=== PATIENT | male | born 1955 | race Caucasian/White ===

== ENCOUNTER → 2017-07-22 | Outpatient (CLI) | payer BC ==
[2017-07-22 11:27] LABS: CH 30.1; CHCM 34.1; HCT 43.7 % (39.0-53.0); HDW 3.07; HGB 14.8 gm/dL (13.0-17.5); MCHC 33.8 g/dL (31.0-37.0); MCV 88.7 fL (80.0-100.0); Mean Platelet Volume 6.8; RBC 4.93 m/uL (4.30-5.90); RDW 13.2 % (11.5-15.5)
[2017-07-22 11:57] LABS: Partial Thromboplastin Time 24.5 sec (22.0-30.0)
[2017-07-22 11:59] LABS: INR 1.2 (<1.2); Prothrombin Time 11.7 sec (9.0-12.0)
[2017-07-22 12:02] LABS: Calcium 9.2 mg/dL (8.4-10.2); Potassium 4.7 mmol/L (3.5-5.1); Total Bilirubin 0.7 mg/dL (0.2-1.3); Total Protein 6.8 g/dL (6.3-8.2)
[2017-07-22 15:12] LABS: Appearance,Urine Clear (Clear); Bilirubin,Urine Negative (Negative); Glucose,Urine (UA) Negative (Negative); Ketones,Urine Negative (Negative); Leukocyte Esterase,Urine Negative (Negative); Nitrite,Urine Negative (Negative); PH, Urine 5.5 (5.0-8.0); Protein,Urine Negative (Negative); Specific Gravity,Urine 1.013 (1.001-1.035); UA Billing (MACRO vs. MICRO) CHEM; Urobilinogen,Urine <2.0 mg/dL (<2.0)
== END | disposition home or self-care (01) ==
LOC: LABPAT 10:59
PROVIDERS: ATTEND Orthopaedic Surgery
DX: Z01.812 Encounter for preprocedural laboratory examination (principal); Z01.810 Encounter for preprocedural cardiovascular examination
CPT/HCPCS: 36415; 80053; 81003; 85027; 85610; 85730; 87070

== ENCOUNTER → 2017-10-07 | Outpatient (CLI) | payer BC | END | disposition home or self-care (01) | LOC: LABWHC1 11:48 | PROVIDERS: ATTEND Radiology Radiation Oncology | DX: C61 Malignant neoplasm of prostate (principal) | CPT/HCPCS: 36415; 84153 ==

== ENCOUNTER → 2018-02-13 | Outpatient (CLI) | payer BC | LOC: LABWHC1 13:30 | PROVIDERS: ATTEND Radiology Radiation Oncology | DX: C61 Malignant neoplasm of prostate (principal) | CPT/HCPCS: 36415; 84153 ==

== ENCOUNTER → 2018-02-26 | Outpatient (CLI) | payer BC ==
--- NOTE | 2018-02-27 19:34 | MR ---
EXAMINATION TYPE: MR shoulder RT wo con DATE OF EXAM: 02/26/2018 COMPARISON: NONE HISTORY: Right shoulder pain TECHNIQUE: Multiplanar, multisequence imaging of the right shoulder is performed without contrast. FINDINGS: Rotator Cuff: There is a bursal surface partial thickness tear of the supraspinatus measuring approxi mately 2.0 x 1.7 cm. Additionally there is an articular surface partial-thickness tear of the inserti onal fibers of the supraspinatus at the footplate of the greater tuberosity measuring 0.2 x 0.5 cm. T his is superimposed upon severe tendinopathy of the supraspinatus with abnormal intrinsic signal of t he myotendinous junction and distal fibers. There is a near complete thickness tear of the infraspinatus with few bursal surface fibers remaining measuring at least 1.2 x 1.5 cm. There is associated retraction without atrophy. Findings are also s uperimposed upon moderate tendinopathy. The teres minor and subscapularis muscles and tendons are of normal signal and volume. Acromioclavicular Joint: There is moderate acromioclavicular arthropathy demonstrated as hypertrophy, subchondral cysts and marginal osteophytes. There is minimal impression on the supraspinatus without abnormal underlying supraspinatus signal. Bursal surface tear of the Glenohumeral Joint: There are small marginal osteophytes of the humeral head and few osseous cyst rel ating to mild arthropathy. Labrum: There is a superior labral anterior to posterior tear that is nondisplaced. There is also lab ral degeneration of the inferior labrum. Biceps Tendon: The long head of biceps is in normal location within bicipital groove. Bone marrow signal: No focal abnormal marrow signal is appreciated. Other: Amount of fluid is seen within the subcoracoid bursa as well as the subacromial/subdeltoid bur sa. IMPRESSION: 1. Near full-thickness tear of the infraspinatus measuring 1.2 x 1.5 cm. Associated moderate tendinop athy and retraction without muscular atrophy. 2. Partial-thickness bursal surface tear of the supraspinatus measuring 2.0 x 1.7 cm and insertional fiber partial-thickness tear measuring 0.2 x 0.5 cm superimposed upon severe tendinopathy. 3. Small nondisplaced superior labral anterior to posterior tear. Inferior labral degeneration. 4. Moderate acromio clavicular arthropathy and mild glenohumeral arthropathy. 5. Small amount of fluid within the subcoracoid bursa as well as the subacromial/subdeltoid bursa hector t may clinically correlate with bursitis.
== END | disposition home or self-care (01) ==
LOC: RADMRIMAIN 10:58
PROVIDERS: ATTEND Orthopaedic Surgery
DX: M75.121 Complete rotator cuff tear or rupture of right shoulder, not specified as traumatic (principal); M19.011 Primary osteoarthritis, right shoulder

== ENCOUNTER → 2018-03-03 | Outpatient (CLI) | payer BC ==
[2018-03-03 10:12] LABS: Basophils # (A) 0.1 k/uL (0-0.2); Basophils % (A) 1 %; Eosinophils # (A) 0.2 k/uL (0-0.7); Eosinophils % (A) 4 %; HCT 43.5 % (39.0-53.0); HGB 14.9 gm/dL (13.0-17.5); Lymphocytes # (A) 1.4 k/uL (1.0-4.8); Lymphocytes % (A) 22 %; MCH 30.7 pg (25.0-35.0); MCHC 34.2 g/dL (31.0-37.0); MCV 89.7 fL (80.0-100.0); Mean Platelet Volume 7.2; Monocytes # (A) 0.5 k/uL (0-1.0); Monocytes % (A) 9 %; Neutrophils # (A) 3.8 k/uL (1.3-7.7); Neutrophils % (A) 62 %; Platelet Count 226 k/uL (150-450); RBC 4.85 m/uL (4.30-5.90); WBC 6.1 k/uL (3.8-10.6)
[2018-03-03 10:17] LABS: INR 1.2 (<1.2); Partial Thromboplastin Time 22.4 sec (22.0-30.0); Prothrombin Time 11.2 sec (9.0-12.0)
[2018-03-03 10:31] LABS: Calcium 9.7 mg/dL (8.4-10.2)
== END | disposition home or self-care (01) ==
LOC: LABWHC1 09:15
PROVIDERS: ATTEND Physician Assistant
DX: Z01.812 Encounter for preprocedural laboratory examination (principal)
CPT/HCPCS: 36415; 80048; 85025; 85610; 85730; 93005

== ENCOUNTER → 2018-04-04 | Outpatient (CLI) | payer BC ==
--- NOTE | 2018-04-05 18:45 | CT ---
EXAMINATION TYPE: CT brain w con DATE OF EXAM: 04/04/2018 COMPARISON: NONE HISTORY: Left eye droop x7 months CT DLP: 1129 mGycm Automated Exposure Control for Dose Reduction was Utilized. TECHNIQUE: CT scan of the head is performed with IV contrast.,CT scan of the head is performed withou t and with with IV Contrast, patient injected with 80 mL of Isovue 300. FINDINGS: The ventricles and sulci are within normal limits in size. Postcontrast images show no susp icious enhancing intraparenchymal mass. The globes are intact. Lenses appear symmetric as do the extr aocular muscles. There is no engorgement of the superior ophthalmic veins. No convincing evidence of intracranial aneurysm is seen although this could be better assessed with MRA. Cavernous sinuses appe ar symmetric. There is minimal atherosclerosis of the intracranial vasculature. Mild mucoperiosteal t hickening is seen of the left inferior maxillary sinus. Otherwise the visualized paranasal sinuses an d mastoid air cells appear well aerated. Cerumen is noted within the external auditory canals bilater ally. There is minimal leftward nasal septal deviation with a small leftward nasal septal spur. IMPRESSION: No evidence of intracranial enhancing mass, orbital abnormality, intraconal or extraconal mass, or gross evidence of intracranial aneurysm. If there is further clinical concern MRI could be performed.
== END | disposition home or self-care (01) ==
LOC: RADCTMAIN 16:51
PROVIDERS: ATTEND Family Medicine
DX: H02.432 Paralytic ptosis of left eyelid (principal); Z13.9 Encounter for screening, unspecified
CPT/HCPCS: 82565; 84520; 70460; 36415; Q9967

== ENCOUNTER → 2018-07-28 | Outpatient (CLI) | payer BC | END | disposition home or self-care (01) | LOC: LABWHC1 09:47 | PROVIDERS: ATTEND Radiology Radiation Oncology | DX: C61 Malignant neoplasm of prostate (principal) | CPT/HCPCS: 36415; 84153 ==

== ENCOUNTER → 2019-01-22 | Outpatient (CLI) | payer BC | END | disposition home or self-care (01) | LOC: LABWHC1 07:47 | PROVIDERS: ATTEND Urology | DX: C61 Malignant neoplasm of prostate (principal) | CPT/HCPCS: 36415; 84153 ==

== ENCOUNTER → 2019-04-30 | Outpatient (CLI) | payer BC | END | disposition home or self-care (01) | LOC: LABWHC1 09:49 | PROVIDERS: ATTEND Radiology Radiation Oncology | DX: C61 Malignant neoplasm of prostate (principal); Z87.891 Personal history of nicotine dependence; Z92.3 Personal history of irradiation | CPT/HCPCS: 36415; 84153 ==

== ENCOUNTER → 2019-05-29 | Outpatient (CLI) | payer BC ==
--- NOTE | 2019-05-29 09:46 | XR ---
EXAMINATION TYPE: XR toes RT, 3 views coned down great toe DATE OF EXAM: 05/29/2019 COMPARISON: NONE HISTORY: 63 year-old male right toe pain TECHNIQUE: 3 views FINDINGS: Mild degenerative change first MTP joint with joint space narrowing and mild subchondral sclerosis. T here is some bony bunion along the medial aspect of the first metatarsal head with bony irregularity and hyperostosis. No acute fracture, subluxation, or dislocation. IMPRESSION: 1. Mild first MTP joint OA. Additional bony bunion. 2. No acute osseous abnormality seen.
== END | disposition home or self-care (01) ==
LOC: RADXRMAIN 09:12
PROVIDERS: ATTEND Family Medicine
DX: M19.071 Primary osteoarthritis, right ankle and foot (principal)

== ENCOUNTER → 2019-11-06 | Outpatient (CLI) | payer BC | END | disposition home or self-care (01) | LOC: LABWHC1 07:14 | PROVIDERS: ATTEND Radiology Radiation Oncology | DX: C61 Malignant neoplasm of prostate (principal); Z92.3 Personal history of irradiation; Z87.891 Personal history of nicotine dependence | CPT/HCPCS: 36415; 84153 ==

== ENCOUNTER → 2020-11-09 | Outpatient (CLI) | payer MEDICARE | END | disposition home or self-care (01) | LOC: LABWHC1 08:38 | PROVIDERS: ATTEND Radiology Radiation Oncology | DX: C61 Malignant neoplasm of prostate (principal); Z92.3 Personal history of irradiation; Z87.891 Personal history of nicotine dependence | CPT/HCPCS: 36415; 84153 ==

== ENCOUNTER → 2021-11-08 | Outpatient (CLI) | payer MEDICARE | END | disposition home or self-care (01) | LOC: LABWHC1 09:30 | PROVIDERS: ATTEND Radiology Radiation Oncology | DX: Z08 Encounter for follow-up examination after completed treatment for malignant neoplasm (principal); Z85.46 Personal history of malignant neoplasm of prostate; Z92.3 Personal history of irradiation; Z87.891 Personal history of nicotine dependence; C61 Malignant neoplasm of prostate | CPT/HCPCS: 36415; 84153 ==

== ENCOUNTER → 2021-12-05 | Outpatient (CLI) | payer MEDICARE ==
[2021-12-05 14:55] LABS: Basophils # (A) 0.11 X 10*3/uL (0.00-0.10); Basophils % (A) 1.4 %; Eosinophils # (A) 0.34 X 10*3/uL (0.04-0.35); Eosinophils % (A) 4.5 %; HCT 45.7 % (39.6-50.0); Immature Grans, Automated 1.3 %; Lymphocytes # (A) 1.83 X 10*3/uL (0.90-5.00); MCH 29.5 pg (27.0-32.0); MCHC 32.8 g/dL (32.0-37.0); MCV 89.8 fL (80.0-97.0); Mean Platelet Volume 10.2 fL (9.5-12.2); Monocytes # (A) 0.68 X 10*3/uL (0.20-1.00); Monocytes % (A) 8.9 %; NRBC Per 100 WBC 0 /100 WBCS (0.0-0.0); Neutrophils # (A) 4.58 X 10*3/uL (1.80-7.70); Neutrophils % (A) 59.9 %; Platelet Count 217 X 10*3/uL (140-440); RBC 5.09 X 10*6/uL (4.40-5.60); RDW 13.3 % (11.5-14.5); WBC 7.64 X 10*3/uL (4.50-10.00)
[2021-12-05 15:24] LABS: ALT 30 U/L (10-49); AST 31 U/L (14-35); African American GFR (CKD) 70.5 (60.0-200.0); Albumin 4.7 g/dL (3.8-4.9); Albumin/Globulin Ratio 1.83 (1.60-3.17); Alkaline Phosphatase 40 U/L (41-126); BUN/Creat Ratio 14.88 Ratio (12.00-20.00); Blood Urea Nitrogen 18.3 mg/dL (9.0-27.0); Calcium 9.4 mg/dL (8.7-10.3); Carbon Dioxide 21.7 mmol/L (20.0-27.5); Chloride 105 mmol/L (96-109); Globulin 2.5 g/dL (1.6-3.3); Glucose 105 mg/dL (70-110); Non-African American GFR(CKD) 60.8 (60.0-200.0); Potassium 4.8 mmol/L (3.5-5.5); Sodium 141 mmol/L (135-145); Total Protein 7.2 g/dL (6.2-8.2)
== END | disposition home or self-care (01) ==
LOC: LABWHC1 09:47
PROVIDERS: ATTEND Internal Medicine Clinical Cardiac Electrophysiology
DX: I10 Essential (primary) hypertension (principal); I25.10 Atherosclerotic heart disease of native coronary artery without angina pectoris; R06.02 Shortness of breath
CPT/HCPCS: 36415; 80053; 80061; 85025

== ENCOUNTER → 2022-06-13 | Outpatient (CLI) | payer MEDICARE ==
[2022-06-13 16:52] LABS: African American GFR (CKD) 72.6 (60.0-200.0); Anion Gap 10.1 mmol/L (10.00-18.00); Blood Urea Nitrogen 15.8 mg/dL (9.0-27.0); Carbon Dioxide 24.5 mmol/L (20.0-27.5); Non-African American GFR(CKD) 62.6 (60.0-200.0); Potassium 4.7 mmol/L (3.5-5.5)
[2022-06-13 17:23] LABS: HCT 44.7 % (39.6-50.0); HGB 14.8 g/dL (13.0-17.0); MCH 29.7 pg (27.0-32.0); MCHC 33.1 g/dL (32.0-37.0); MCV 89.6 fL (80.0-97.0); Mean Platelet Volume 10.4 fL (9.5-12.2); NRBC Per 100 WBC 0 /100 WBCS (0.0-0.0); Platelet Count 208 X 10*3/uL (140-440); RBC 4.99 X 10*6/uL (4.40-5.60); RDW 13.2 % (11.5-14.5)
== END | disposition home or self-care (01) ==
LOC: LABPAT 10:35
PROVIDERS: ATTEND Internal Medicine Interventional Cardiology
DX: Z01.812 Encounter for preprocedural laboratory examination (principal); I25.10 Atherosclerotic heart disease of native coronary artery without angina pectoris
CPT/HCPCS: 80051; 82565; 84520; 85027

== ENCOUNTER → 2022-06-20 | Day surgery (SDC) | payer MEDICARE ==
[2022-06-18 15:45] VITALS: BMI 30.9
[~2022-06-20] MED LIST: ALPRAZolam 0.25 MG TAB PO PRN; ALPRAZolam 0.5 MG TAB PO PRN; ASPIRIN 325 MG TAB PO STA; ATORVASTATIN 80 MG TAB PO STA; HEPARIN SODIUM 1,000 UN/ML (10ML VL) IVP ONE; HEPARIN SODIUM 1,000 UN/ML (10ML VL) ONE; HEPARIN SODIUM,PORCINE 10,000 UNIT in SODIUM CHLORIDE 0.9% 1,000 ML IRRIGATION PRN; HEPARIN SODIUM,PORCINE 2,500 UNIT in SODIUM CHLORIDE 0.9% 250 ML IRRIGATION PRN; IOPAMIDOL-370 125ML BTL INJ ONE; ISOSORBIDE MONONITRATE ER 30 MG TAB.ER.24H PO STA; LIDOCAINE 1% INJ 10MG/ML (30 ML VIAL-PF) SQ ONE; MIDAZOLAM 2 MG/2 ML VIAL IVP ONE; NITROGLYCERIN SL TABS 0.4 MG TAB SUBLINGUAL PRN; RX INFO: IV CONTRAST WAS GIVEN 1 EACH MISC MISCELLANE PRN; SODIUM CHLORIDE 0.9% 1,000 ML IV ONE; SODIUM CHLORIDE 0.9% 1,000 ML IV SCH; SODIUM CHLORIDE 0.9% 1,000 ML in EMPTY BAG 1 BAG IV SCH; VERAPAMIL 2.5 MG/ML 2 ML AMP ONE; VERAPAMIL SYRINGE (5 MG/10 ML) INTRAARTER ONE; carvediloL 3.125 MG TAB PO STA; fentaNYL (PF) 50 MCG/ML 2 ML AMP ONE
[2022-06-20 10:59] VITALS: RESP 16; TEMP 9.9
[2022-06-20 11:02] LABS: Glucose,Whole Blood 122 mg/dL (70-110)
--- NOTE | 2022-06-20 12:42 | P.PCN ---
Date of Procedure: 06/20/22 Operative Findings: CARDIAC CATHETERIZATION PERFORMING PHYSICIAN: Mega Arango MD, RPVI PROCEDURE PERFORMED: 1. Selective right and left coronary angiogram 2. Left heart catheterization INDICATION: This is a 66-year-old gentleman was known CAD and prior stenting of the LAD. The patient was seen recently in the office by Dr. Nolasco where he was experiencing symptoms of shortness of breath with exertion concerning for severe underlying coronary artery disease. In the light of that heart catheterization was advised COMPLICATION: None APPROACH: Right radial artery LEVEL OF SEDATION: Moderate with a sedation length of 13 minutes PROCEDURE DESCRIPTION: After obtaining an informed consent, the patient was brought to cardiac label coder. Local anesthesia was performed using lidocaine subcutaneously. The right radial artery was cannulated using Seldinger technique, the guidewire passed easily, following that we advanced a 5-[place] sheath dilator assembly, the wire and dilator were removed and sheath was flushed. Following that, 2 mg of verapamil along with 5000 unit heparin were given. Selective right and left coronary angiogram using a 6-[place] JR4 and JL 3.5 catheters. Following that we did left heart catheterization using 6-[place] pigtail catheter. The procedure was completed there was no complication. SELECTIVE CORONARY ANGIOGRAM: The right coronary artery: Large caliber vessel and a dominant vessel. The mid RCA has mild disease only appeared to be in the range of 20-30%. Left main: Angiographically normal. Bifurcates into LCx and LAD The left circumflex: Large caliber vessel. Nondominant vessel. The LCx system is angiographically normal. Gives rise into an OM1 and OM to both appeared to be angiographically normal The left anterior descending artery: Large caliber vessel. The LAD is angiographically normal. Gives rises into first and second diagonal branches both appeared to be angiographically normal. The LAD stent appeared to be patent HEMODYNAMICS: LVEDP was 10 mmHg was no significant dependent across aortic CONCLUSION: 1. Patent stent in the proximal LAD. 2. Mild disease involving the mid right coronary artery appears to be in the range of 20-30% 3. Normal left sided filling pressure POSTPROCEDURE MANAGEMENT: Aggressive cholesterol control and follow-up with the patient
[2022-06-20 15:50] VITALS: BP 117/72; PULSE 62
== END ==
LOC: CATHCVL 10:34
PROVIDERS: ATTEND Internal Medicine Interventional Cardiology
DX: I25.110 Atherosclerotic heart disease of native coronary artery with unstable angina pectoris (principal); I10 Essential (primary) hypertension; E78.00 Pure hypercholesterolemia, unspecified; I25.2 Old myocardial infarction; I25.5 Ischemic cardiomyopathy; Z95.5 Presence of coronary angioplasty implant and graft; E78.5 Hyperlipidemia, unspecified; Z20.822 Contact with and (suspected) exposure to COVID-19; Z79.82 Long term (current) use of aspirin; Z79.899 Other long term (current) drug therapy; Z88.0 Allergy status to penicillin
CPT/HCPCS: 93458; 87635; C1769; C1894; J2250; J2001; J1644; Q9967

== ENCOUNTER → 2023-03-04 | Outpatient (CLI) | payer MEDICARE ==
--- NOTE | 2023-03-04 09:14 | XR ---
EXAMINATION TYPE: XR chest special 4+ views DATE OF EXAM: 03/04/2023 8:58 AM COMPARISON: Chest radiographs from TECHNIQUE: XR chest special 4+ views frontal, bilateral oblique, and lateral. CLINICAL INDICATION:Male, 67 years old with history of R03.5 chronic cough; FINDINGS: Lungs/Pleura: There is no evidence of pleural effusion, focal consolidation, or pneumothorax. Pulmonary vascularity: Unremarkable. Heart/mediastinum: Cardiomediastinal silhouette is unremarkable. Musculoskeletal: No acute osseous pathology. IMPRESSION: No acute cardiopulmonary disease/process.
== END | disposition home or self-care (01) ==
LOC: RADXRMAIN 08:37
PROVIDERS: ATTEND Otolaryngology
DX: R05.3 Chronic cough (principal)
CPT/HCPCS: 71048

== ENCOUNTER → 2024-06-16 | Outpatient (CLI) | payer MEDICARE ==
--- NOTE | 2024-06-19 21:15 | US ---
EXAMINATION TYPE: US groin RT DATE OF EXAM: 06/16/2024 COMPARISON: NONE CLINICAL INDICATION: Male, 68 years old with history of R10.2 Pelvic and perineal pain; hx of prostat e can; Right groin pain Right groin: scanned at patient's area of concern - appears wnl at this time IMPRESSION: 1. No discrete abnormality at the area of concern right groin region [facility], , 06/19/2024 9:13 PM
== END | disposition home or self-care (01) ==
LOC: RADUSWWP 08:46
PROVIDERS: ATTEND Family Medicine

== ENCOUNTER 2024-10-23 20:57 | Observation (INO) | payer MEDICARE ==
[2024-10-23] MEDS: HYDROmorphone 1 MG/ML 1 ML SYRINGE IVP STA ×2 (21:43→23:54)
[2024-10-23] MEDS: SODIUM CHLORIDE 0.9% 1,000 ML IV STA (21:43)
[2024-10-23 21:57] LABS: Basophils # (A) 0.2 k/uL (0-0.2); Basophils % (A) 1 %; Eosinophils # (A) 0.2 k/uL (0-0.7); Eosinophils % (A) 1 %; HCT 49.2 % (39.0-53.0); Lymphocytes # (A) 1.3 k/uL (1.0-4.8); Lymphocytes % (A) 7 %; MCH 29.5 pg (25.0-35.0); MCHC 34.5 g/dL (31.0-37.0); MCV 85.5 fL (80.0-100.0); Mean Platelet Volume 6.9; Monocytes # (A) 1.1 k/uL (0-1.0); Monocytes % (A) 6 %; Neutrophils # (A) 16.6 k/uL (1.3-7.7); Neutrophils % (A) 85 %; Platelet Count 251 k/uL (150-450); RBC 5.76 m/uL (4.30-5.90); RDW 13.4 % (11.5-15.5); WBC 19.5 k/uL (3.8-10.6)
[2024-10-23 22:07] LABS: Appearance,Urine Turbid (Clear); Bacteria,Urine Occasional /hpf; Bilirubin,Urine Negative (Negative); Blood,Urine Large (Negative); Color,Urine Light Red; Glucose,Urine (UA) Negative (Negative); Hyaline Casts,Urine 14 /lpf (0-2); Ketones,Urine Trace (Negative); Leukocyte Esterase,Urine Negative (Negative); Mucus,Urine Many /hpf; Nitrite,Urine Negative (Negative); Protein,Urine 1+ (Negative); RBC,Urine >182 /hpf (0-5); Squamous Epithelial Cell,Urine 2 /hpf (0-4); Urobilinogen,Urine <2.0 mg/dL (<2.0); WBC,Urine 18 /hpf (0-5)
[2024-10-23 22:21] LABS: ALT 40 U/L (4-49); AST 32 U/L (17-59); African American GFR (CKD) 45 (>60 ml/min/1.73 sqM); Alkaline Phosphatase 55 U/L (38-126); Anion Gap 17 mmol/L; Blood Urea Nitrogen 26 mg/dL (9-20); Calcium 10.6 mg/dL (8.4-10.2); Carbon Dioxide 17 mmol/L (22-30); Chloride 105 mmol/L (98-107); Glucose 131 mg/dL (74-99); Lipase 170 U/L (23-300); Non-African American GFR(CKD) 39 (>60 ml/min/1.73 sqM); Potassium 4.6 mmol/L (3.5-5.1); Sodium 139 mmol/L (137-145); Total Protein 7.5 g/dL (6.3-8.2)
[2024-10-24] MEDS: cefTRIAXone IN SWFI 1,000 MG/10 ML SYRINGE IVP STA (00:43)
--- NOTE | 2024-10-24 01:00 | CT ---
EXAM: CT Abdomen and Pelvis With Intravenous Contrast CLINICAL HISTORY: ITS.REASON CT Reason: abdominal pain TECHNIQUE: Axial computed tomography images of the abdomen and pelvis with intravenous contrast. CTDI is 28.3 mGy and DLP is 1391 mGy-cm. This CT exam was performed using one or more of the following dose reduction techniques: automated exposure control, adjustment of the mA and/or kV according to patient size, and/or use of iterative reconstruction technique. COMPARISON: No previous studies. FINDINGS: Lung bases: Minimal scarring and subsegmental atelectasis noted near the lung bases. Heart: Heart is normal in size. ABDOMEN: Liver: Fatty liver. Gallbladder and bile ducts: Unremarkable. No calcified stones. No ductal dilation. Pancreas: See below. Spleen: Spleen enhances uniformly. Adrenals: The adrenal glands, the head, body, tail of the pancreas are unremarkable. Kidneys and ureters: Moderate to severe right hydronephrosis. At the junction of the mid to distal right ureter, best seen on series 2 0 image 69, there is a 0.4 cm obstructing calculus of the right ureter. A 0.7 cm nonobstructing left renal calculus is noted without hydronephrosis. Nonspecific stranding about the right perinephric space. Moderate right hydroureter. Stomach and bowel: Moderate quantity of ingested material in the stomach. Moderate quantity of stool throughout the colon. No obstruction. No mucosal thickening. PELVIS: Appendix: Appendix is seen on coronal image 55 and is unremarkable. Bladder: Bladder is underdistended. Reproductive: Enlarged heterogeneous prostate gland. ABDOMEN and PELVIS: Intraperitoneal space: Unremarkable. No free air. No significant fluid collection. Bones/joints: No acute fracture. No dislocation. Soft tissues: Unremarkable. Vasculature: Unremarkable. No abdominal aortic aneurysm. Lymph nodes: Unremarkable. No enlarged lymph nodes. Other findings: ASCVD. IMPRESSION: 1. A 0.4 cm obstructing calculus is noted at the junction of the mid to distal right ureter causing right hydronephrosis and right hydroureter. 2. Nonobstructing left renal calculus. 3. Fatty liver. 4. No gallstones. 5. Appendix is unremarkable. 6. No bowel obstruction. 7. Diverticulosis without diverticulitis.
[2024-10-24] MEDS ORDERED: NALOXONE 0.4 MG/ML 1 ML VIAL IV PRN (01:59)
[2024-10-24] MEDS ORDERED: ACETAMINOPHEN TAB 325 MG TAB PO PRN (01:59)
[2024-10-24] MEDS ORDERED: ONDANSETRON 4 MG/2 ML VIAL IVP PRN (01:59)
--- NOTE | 2024-10-24 01:59 | ED ---
Abdominal Pain HPI - General Chief Complaint: Abdominal Pain Stated Complaint: Side and back pain Source: patient Mode of arrival: ambulatory Limitations: no limitations - History of Present Illness Initial Comments: 68-year-old male with past medical history of prostate cancer, diabetes who presents emergency department with right flank pain. States that he has had pain for 3 to 4 hours. Pain radiates from the right flank into his right groin. Patient denies any trauma to the area. No heavy lifting. Denies any changes in his urination to include dysuria, hematuria or difficulty voiding. Denies diarrhea, constipation, black or bloody stools. No history of similar pain in the past. Denies history of kidney stones. He did not take anything for pain before coming in. No numbness, tingling or weakness in his lower extremities. Denies any additional symptoms to include fever, nausea, vomiting. - Related Data Home Medications Medication Instructions Recorded Confirmed Aspirin [Adult Low Dose Aspirin EC] 162 mg PO DAILY 07/24/17 06/20/22 Cholecalciferol [Vitamin D3 (25 5,000 unit PO DAILY 07/24/17 06/20/22 Mcg = 1000 Iu)] Gabapentin [Neurontin] 300 mg PO HS 07/24/17 06/20/22 Irbesartan [Avapro] 150 mg PO HS 07/24/17 06/20/22 Isosorbide Mononitrate [Isosorbide 30 mg PO DAILY 06/18/22 06/20/22 Mononitrate ER] Spironolactone 25 mg PO DAILY 06/18/22 06/20/22 Tamsulosin [Flomax] 0.4 mg PO DAILY 06/18/22 06/20/22 carvediloL [Coreg] 3.125 mg PO BID 06/18/22 06/20/22 Atorvastatin [Lipitor] 80 mg PO HS 06/20/22 06/20/22 Etanercept [Enbrel] 50 mg SQ WEEKLY 06/20/22 06/20/22 oxyCODONE-APAP 5-325MG [Percocet 1 tab PO Q4HR PRN 06/20/22 06/20/22 5-325 mg] Previous Rx's Medication Instructions Recorded Nitroglycerin Sl Tabs [Nitrostat] 0.4 mg SUBLINGUAL Q5M PRN #25 tab 09/21/17 Allergies Allergy/AdvReac Type Severity Reaction Status Date / Time amoxicillin Allergy Unknown Nausea & Verified 10/23/24 21:01 Vomiting & Diarrhea ibuprofen [From Motrin] AdvReac Unknown STATES Verified 10/23/24 21:01 DOES NOT TAKE DUE TO KIDNEYS. Review of Systems ROS Statement: Those systems with pertinent positive or pertinent negative responses have been documented in the HPI. ROS Other: All systems not noted in ROS Statement are negative. Past Medical History Past Medical History: Cancer, Chest Pain / Angina, Diabetes Mellitus, Myocardial Infarction (ME) Additional Past Medical History / Comment(s): prostate cancer, arthritis Last Myocardial Infarction Date:: 2016 History of Any Multi-Drug Resistant Organisms: None Reported Past Surgical History: Heart Catheterization With Stent, Tonsillectomy Additional Past Surgical History / Comment(s): knee surgery x3, bicep surgery, Past Anesthesia/Blood Transfusion Reactions: No Reported Reaction Date of Last Stent Placement:: 2006 Past Psychological History: No Psychological Hx Reported Smoking Status: Current every day smoker Past Alcohol Use History: None Reported Past Drug Use History: None Reported - Past Family History Father Family Medical History: Cancer Mother Family Medical History: Cancer General Exam Limitations: no limitations Course Vital Signs 10/23/24 10/24/24 20:58 02:01 Temperature 97.4 F L Pulse Rate 78 54 L Respiratory 20 18 Rate Blood Pressure 153/76 184/74 O2 Sat by Pulse 95 99 Oximetry Medical Decision Making - Medical Decision Making Was pt. sent in by a medical professional or institution ([facility], [employer], urgent care, hospital, or usp...) When possible be specific @ -[No] Did you speak to anyone other than the patient for history (EMS, parent, family, police, friend...)? What history was obtained from this source @ -[No] Did you review nursing and triage notes (agree or disagree)? Why? @ -[I reviewed and agree with nursing and triage notes] Were old charts reviewed (outside hosp., previous admission, EMS record, old EKG, old radiological studies, urgent care reports/EKG's, usp records)? Report findings @ -[No old charts were reviewed] Differential Diagnosis (chest pain, altered mental status, abdominal pain women, abdominal pain men, vaginal bleeding, weakness, fever, dyspnea, syncope, headache, dizziness, GI bleed, back pain, seizure, CVA, palpatations, mental health, musculoskeletal)? @ -[not applicable] EKG interpreted by me (3pts min.). @ -Yes and demonstrates sinus bradycardia with rate of 53. Parable 201. QRS 100. QTc of 394. No acute ST segment elevations or depressions X-rays interpreted by me (1pt min.). @ -[None done] CT interpreted by me (1pt min.). @ -[None done] U/S interpreted by me (1pt. min.). @ -[None done] What testing was considered but not performed or refused? (CT, X-rays, U/S, lab s)? Why? @ -[None] What meds were considered but not given or refused? Why? @ -[None] Did you discuss the management of the patient with other professionals (professionals i.e. , PA, [employer], lab, RT, psych nurse, licensed master social worker, communication equipment mechanic, teacher, disability insurance hearing officer, porter sample case)? Give summary @ -[No] Was smoking cessation discussed for >3mins.? @ -[No] Was critical care preformed (if so, how long)? @ -[No] Were there social determinants of health that impacted care today? How? (Homelessness, low income, unemployed, alcoholism, drug addiction, transportation, low edu. Level, literacy, decrease access to med. care, long term, rehab)? @ -[No] Was there de-escalation of care discussed even if they declined (Discuss DNR or withdrawal of care, Hospice)? DNR status @ -[No] What co-morbidities impacted this encounter? (DM, HTN, Smoking, COPD, CAD, Cancer, CVA, ARF, Chemo, Hep., AIDS, mental health diagnosis, sleep apnea, morbid obesity)? @ -[None] Was patient admitted / discharged? Hospital course, mention meds given and route, prescriptions, significant lab abnormalities, going to OR and other pertinent info. @ -[hospital course] Undiagnosed new problem with uncertain prognosis? @ -[No] Drug Therapy requiring intensive monitoring for toxicity (Heparin, Nitro, Insulin, Cardizem)? @ -[No] Were any procedures done? @ -[No] Diagnosis/symptom? @ -[default] Acute, or Chronic, or Acute on Chronic? @ -[default] Uncomplicated (without systemic symptoms) or Complicated (systemic symptoms)? @ -[default] Side effects of treatment? @ -[No] Exacerbation, Progression, or Severe Exacerbation? @ -[No] Poses a threat to life or bodily function? How? (Chest pain, USA, ME, pneumonia, PE, COPD, DKA, ARF, appy, cholecystitis, CVA, Diverticulitis, Homicidal, Suicidal, threat to staff... and all critical care pts) @ -[No] - Lab Data Result diagrams: 10/23/24 21:32 10/23/24 21:32 Lab Results 10/23/24 10/23/24 10/23/24 Range/Units 21:32 21:32 21:32 WBC 19.5 H (3.8-10.6) k/uL RBC 5.76 (4.30-5.90) m/uL Hgb 17.0 (13.0-17.5) gm/dL Hct 49.2 (39.0-53.0) % MCV 85.5 (80.0-100.0) fL MCH 29.5 (25.0-35.0) pg MCHC 34.5 (31.0-37.0) g/dL RDW 13.4 (11.5-15.5) % Plt Count 251 (150-450) k/uL MPV 6.9 Neutrophils % 85 % Lymphocytes % 7 % Monocytes % 6 % Eosinophils % 1 % Basophils % 1 % Neutrophils # 16.6 H (1.3-7.7) k/uL Lymphocytes # 1.3 (1.0-4.8) k/uL Monocytes # 1.1 H (0-1.0) k/uL Eosinophils # 0.2 (0-0.7) k/uL Basophils # 0.2 (0-0.2) k/uL Sodium 139 (137-145) mmol/L Potassium 4.6 (3.5-5.1) mmol/L Chloride 105 (98-107) mmol/L Carbon Dioxide 17 L (22-30) mmol/L Anion Gap 17 mmol/L BUN 26 H (9-20) mg/dL Creatinine 1.77 H (0.66-1.25) mg/dL Est GFR (CKD-EPI)AfAm 45 (>60 ml/min/1.73 sqM) Est GFR (CKD-EPI)NonAf 39 (>60 ml/min/1.73 sqM) Glucose 131 H (74-99) mg/dL Plasma Lactic Acid Bennie (0.7-2.0) mmol/L Calcium 10.6 H (8.4-10.2) mg/dL Total Bilirubin 1.0 (0.2-1.3) mg/dL AST 32 (17-59) U/L ALT 40 (4-49) U/L Alkaline Phosphatase 55 (38-126) U/L Total Protein 7.5 (6.3-8.2) g/dL Albumin 5.0 (3.5-5.0) g/dL Lipase 170 (23-300) U/L Urine Color Light Red Urine Appearance Turbid (Clear) Urine pH 5.0 (5.0-8.0) Ur Specific [place] 1.030 (1.001-1.035) Urine Protein 1+ H (Negative) Urine Glucose (UA) Negative (Negative) Urine Ketones Trace H (Negative) Urine Blood Large H (Negative) Urine Nitrite Negative (Negative) Urine Bilirubin Negative (Negative) Urine Urobilinogen <2.0 (<2.0) mg/dL Ur Leukocyte Esterase Negative (Negative) Urine RBC >182 H (0-5) /hpf Urine WBC 18 H (0-5) /hpf Urine WBC Clumps Many H (None) /hpf Ur Squamous Epith Cells 2 (0-4) /hpf Urine Bacteria Occasional H (None) /hpf Hyaline Casts 14 H (0-2) /lpf Urine Mucus Many H (None) /hpf 10/23/24 Range/Units 21:32 WBC (3.8-10.6) k/uL RBC (4.30-5.90) m/uL Hgb (13.0-17.5) gm/dL Hct (39.0-53.0) % MCV (80.0-100.0) fL MCH (25.0-35.0) pg MCHC (31.0-37.0) g/dL RDW (11.5-15.5) % Plt Count (150-450) k/uL MPV Neutrophils % % Lymphocytes % % Monocytes % % Eosinophils % % Basophils % % Neutrophils # (1.3-7.7) k/uL Lymphocytes # (1.0-4.8) k/uL Monocytes # (0-1.0) k/uL Eosinophils # (0-0.7) k/uL Basophils # (0-0.2) k/uL Sodium (137-145) mmol/L Potassium (3.5-5.1) mmol/L Chloride (98-107) mmol/L Carbon Dioxide (22-30) mmol/L Anion Gap mmol/L BUN (9-20) mg/dL Creatinine (0.66-1.25) mg/dL Est GFR (CKD-EPI)AfAm (>60 ml/min/1.73 sqM) Est GFR (CKD-EPI)NonAf (>60 ml/min/1.73 sqM) Glucose (74-99) mg/dL Plasma Lactic Acid Bennie 1.3 (0.7-2.0) mmol/L Calcium (8.4-10.2) mg/dL Total Bilirubin (0.2-1.3) mg/dL AST (17-59) U/L ALT (4-49) U/L Alkaline Phosphatase (38-126) U/L Total Protein (6.3-8.2) g/dL Albumin (3.5-5.0) g/dL Lipase (23-300) U/L Urine Color Urine Appearance (Clear) Urine pH (5.0-8.0) Ur Specific [place] (1.001-1.035) Urine Protein (Negative) Urine Glucose (UA) (Negative) Urine Ketones (Negative) Urine Blood (Negative) Urine Nitrite (Negative) Urine Bilirubin (Negative) Urine Urobilinogen (<2.0) mg/dL Ur Leukocyte Esterase (Negative) Urine RBC (0-5) /hpf Urine WBC (0-5) /hpf Urine WBC Clumps (None) /hpf Ur Squamous Epith Cells (0-4) /hpf Urine Bacteria (None) /hpf Hyaline Casts (0-2) /lpf Urine Mucus (None) /hpf Disposition Clinical Impression: UTI (urinary tract infection), Ureteral stone with hydronephrosis, Leukocytosis, Flank pain, DUSTIN (acute kidney injury) Disposition: ADMITTED IP TO THIS [facility] Condition: Stable Is patient prescribed a controlled substance at d/c from ED?: No Time of Disposition: 01:59 Decision to Admit Reason: Admit from EC Decision Date: 10/24/24 Decision Time: 01:59
[2024-10-24] MEDS: KETOROLAC 15 MG/ML 1 ML VIAL IVP SCH (02:33)
[2024-10-24] MEDS: HYDROmorphone 1 MG/ML 1 ML SYRINGE IVP PRN (02:33)
[2024-10-24] MEDS: SODIUM CHLORIDE 0.9% 1,000 ML IV SCH (02:33)
--- NOTE | 2024-10-24 10:59 | P.GSCN ---
History of Present Illness Consult date: 10/24/24 Reason for Consult: Right ureteral calculus Requesting physician: Rosy Perez History of present illness: The patient is a 68-year-old white male with a history of prostate cancer, treated in 2017 with radiation therapy. His PSA levels are very low, as desired. He denies any prior history of urolithiasis. However, yesterday midday he experienced acute onset of right flank pain radiating to the right testicle. CT scan shows evidence of moderate to severe right hydronephrosis due to a 4 to 5 mm calculus just distal to the iliac vessels. An additional 7 mm nonobstructing left renal calculus is seen. Review of Systems - Constitutional Denies chills, Denies fever - Gastrointestinal Denies nausea, Denies vomiting - Genitourinary Reports flank pain, Reports hematuria, Reports kidney stones, Denies dysuria Past Medical History Past Medical History: Cancer, Chest Pain / Angina, Diabetes Mellitus, Myocardial Infarction ([place]) Additional Past Medical History / Comment(s): prostate cancer, arthritis Last Myocardial Infarction Date:: 2016 History of Any Multi-Drug Resistant Organisms: None Reported Past Surgical History: Heart Catheterization With Stent, Tonsillectomy Additional Past Surgical History / Comment(s): knee surgery x3, bicep surgery, Past Anesthesia/Blood Transfusion Reactions: No Reported Reaction Date of Last Stent Placement:: 2006 Past Psychological History: No Psychological Hx Reported Smoking Status: Current every day smoker Past Alcohol Use History: None Reported Past Drug Use History: None Reported - Past Family History Father Family Medical History: Cancer Mother Family Medical History: Cancer Medications and Allergies Home Medications Medication Instructions Recorded Confirmed Type Aspirin [Adult Low Dose Aspirin EC] 162 mg PO DAILY 07/24/17 06/20/22 History Cholecalciferol [Vitamin D3 (25 5,000 unit PO DAILY 07/24/17 06/20/22 History Mcg = 1000 Iu)] Gabapentin [Neurontin] 300 mg PO HS 07/24/17 06/20/22 History Irbesartan [Avapro] 150 mg PO HS 07/24/17 06/20/22 History Nitroglycerin Sl Tabs [Nitrostat] 0.4 mg SUBLINGUAL Q5M PRN #25 tab 09/21/17 06/18/22 Rx Isosorbide Mononitrate [Isosorbide 30 mg PO DAILY 06/18/22 06/20/22 History Mononitrate ER] Spironolactone 25 mg PO DAILY 06/18/22 06/20/22 History Tamsulosin [Flomax] 0.4 mg PO DAILY 06/18/22 06/20/22 History carvediloL [Coreg] 3.125 mg PO BID 06/18/22 06/20/22 History Atorvastatin [Lipitor] 80 mg PO HS 06/20/22 06/20/22 History Etanercept [Enbrel] 50 mg SQ WEEKLY 06/20/22 06/20/22 History oxyCODONE-APAP 5-325MG [Percocet 1 tab PO Q4HR PRN 06/20/22 06/20/22 History 5-325 mg] Allergies Allergy/AdvReac Type Severity Reaction Status Date / Time amoxicillin Allergy Unknown Nausea & Verified 10/23/24 21:01 Vomiting & Diarrhea ibuprofen [From Motrin] AdvReac Unknown STATES Verified 10/23/24 21:01 DOES NOT TAKE DUE TO KIDNEYS. Surgical - Exam Vital Signs Temp Pulse Resp BP Pulse Ox 97.4 F L 78 20 153/76 95 10/23/24 20:58 10/23/24 20:58 10/23/24 20:58 10/23/24 20:58 10/23/24 20:58 - General well developed, well nourished, moderate pain - Respiratory normal respiratory effort - Abdomen Soft, non-distended, no mass. Mild right CVA tenderness. - Psychiatric oriented to time, oriented to person, oriented to place, speech is normal, memory intact Results - Labs 10/23/24 21:32 10/23/24 21:32 Abnormal Lab Results - Last 24 Hours (Table) 10/23/24 10/23/24 10/23/24 Range/Units 21:32 21:32 21:32 WBC 19.5 H (3.8-10.6) k/uL Neutrophils # 16.6 H (1.3-7.7) k/uL Monocytes # 1.1 H (0-1.0) k/uL Carbon Dioxide 17 L (22-30) mmol/L BUN 26 H (9-20) mg/dL Creatinine 1.77 H (0.66-1.25) mg/dL Glucose 131 H (74-99) mg/dL Calcium 10.6 H (8.4-10.2) mg/dL Urine Protein 1+ H (Negative) Urine Ketones Trace H (Negative) Urine Blood Large H (Negative) Urine RBC >182 H (0-5) /hpf Urine WBC 18 H (0-5) /hpf Urine WBC Clumps Many H (None) /hpf Urine Bacteria Occasional H (None) /hpf Hyaline Casts 14 H (0-2) /lpf Urine Mucus Many H (None) /hpf Diabetes panel 10/23/24 Range/Units 21:32 Sodium 139 (137-145) mmol/L Potassium 4.6 (3.5-5.1) mmol/L Chloride 105 (98-107) mmol/L Carbon Dioxide 17 L (22-30) mmol/L BUN 26 H (9-20) mg/dL Creatinine 1.77 H (0.66-1.25) mg/dL Glucose 131 H (74-99) mg/dL Calcium 10.6 H (8.4-10.2) mg/dL AST 32 (17-59) U/L ALT 40 (4-49) U/L Alkaline Phosphatase 55 (38-126) U/L Total Protein 7.5 (6.3-8.2) g/dL Albumin 5.0 (3.5-5.0) g/dL Calcium panel 10/23/24 Range/Units 21:32 Calcium 10.6 H (8.4-10.2) mg/dL Albumin 5.0 (3.5-5.0) g/dL Pituitary panel 10/23/24 Range/Units 21:32 Sodium 139 (137-145) mmol/L Potassium 4.6 (3.5-5.1) mmol/L Chloride 105 (98-107) mmol/L Carbon Dioxide 17 L (22-30) mmol/L BUN 26 H (9-20) mg/dL Creatinine 1.77 H (0.66-1.25) mg/dL Glucose 131 H (74-99) mg/dL Calcium 10.6 H (8.4-10.2) mg/dL Adrenal panel 10/23/24 Range/Units 21:32 Sodium 139 (137-145) mmol/L Potassium 4.6 (3.5-5.1) mmol/L Chloride 105 (98-107) mmol/L Carbon Dioxide 17 L (22-30) mmol/L BUN 26 H (9-20) mg/dL Creatinine 1.77 H (0.66-1.25) mg/dL Glucose 131 H (74-99) mg/dL Calcium 10.6 H (8.4-10.2) mg/dL Total Bilirubin 1.0 (0.2-1.3) mg/dL AST 32 (17-59) U/L ALT 40 (4-49) U/L Alkaline Phosphatase 55 (38-126) U/L Total Protein 7.5 (6.3-8.2) g/dL Albumin 5.0 (3.5-5.0) g/dL - Imaging CT scan - abdomen: report reviewed, image reviewed Assessment and Plan (1) Calculus of kidney Current Visit: Yes Status: Acute Code(s): N20.0 - CALCULUS OF KIDNEY SNOMED Code(s): 22262566 (2) Calculus of ureter Current Visit: Yes Status: Acute Code(s): N20.1 - CALCULUS OF URETER SNOMED Code(s): 86015160 (3) Hydronephrosis with renal and ureteral calculous obstruction Current Visit: Yes Status: Acute Code(s): N13.2 - HYDRONEPHROSIS WITH RENAL AND URETERAL CALCULOUS OBSTRUCTION SNOMED Code(s): 651253865 Plan: I had a lengthy discussion with the patient regarding his right ureteral calculus and left renal calculus. I explained that the right ureteral calculus, based on size and location, it is fairly likely to pass. However, his pain has been intractable and he thus requests intervention. We discussed performing right ureteroscopy with laser lithotripsy to remove the right ureteral calculus, but he wishes to have both calculi removed. In view of this, he will undergo r ight ureteral stent insertion today, with the expectation that this will relieve his ureteral obstruction and allow him to be discharged home. Arrangements would then be made for him to undergo elective removal of both calculi. All of this was discussed with him in detail, and he was made aware of potential risks which include anesthesia, bleeding, infection, and ureteral injury. Time with Patient: Greater than 30
[2024-10-24] MEDS: LIDOCAINE 2% URO-JET JELLY 5 ML KIT URETHRAL ONE ×2 (12:48→13:15)
[2024-10-24] MEDS ORDERED: MIDAZOLAM 2 MG/2 ML VIAL ONE (13:00)
[2024-10-24] MEDS ORDERED: PROPOFOL 10 MG/ML 20 ML VIAL IV ONE (13:00)
[2024-10-24] MEDS ORDERED: fentaNYL (PF) 50 MCG/ML 2 ML AMP ONE (13:00)
[2024-10-24] MEDS: SODIUM CHLORIDE 0.9% 1,000 ML IV ONE (13:02)
--- NOTE | 2024-10-24 13:34 | P.OP ---
Date of Procedure: 10/24/24 Preoperative Diagnosis: Right hydronephrosis secondary to right ureteral calculus Postoperative Diagnosis: Same Procedure(s) Performed: Cystoscopy, right ureteral stent insertion Anesthesia: MAC Surgeon: Elian Davis Estimated Blood Loss (ml): 0 IV fluids (ml): 400 Pathology: none sent Condition: stable Disposition: PACU Indications for Procedure: The patient is a 68-year-old white male with a history of prostate cancer, treated in 2017 with radiation therapy. His PSA levels are very low, as desired. He denies any prior history of urolithiasis. However, yesterday midday he experienced acute onset of right flank pain radiating to the right testicle. CT scan shows evidence of moderate to severe right hydronephrosis due to a 4 to 5 mm calculus just distal to the iliac vessels. An additional 7 mm nonobstructing left renal calculus is seen. He now comes for right ureteral stent insertion. Operative Findings: Retained contrast within the right renal pelvis and ureter down to the level of the iliac vessels. Ureteral stent successfully placed. Description of Procedure: The patient was taken to the operating room and placed in the dorsolithotomy position, with legs supported in Lencho stirrups. The external genitalia was prepped and draped sterilely. The 30 lens was used to introduce the 22-[place] Stortz cystoscopic sheath through the urethra and into the bladder under direct vision. The prostatic urethra was visually occluded with a by lobar configuration. Mucosal vessels within the prostatic urethra were somewhat friable. The bladder was examined in its entirety. Both ureteral orifices were of normal anatomic location and configuration. No tumors or foreign bodies were seen. Fluoroscopy revealed retained contrast within the right renal pelvis and a dilated right ureter, down to the level of the iliac vessels. A 0.035 inch Glidewire was passed through the cystoscope. The right ureteral orifice was cannulated, and the Glidewire was slowly advanced up to the renal pelvis without any resistance. A 26 cm, 6-Venezuelan double-J ureteral stent was placed over the wire. Proper stent positioning was verified fluoroscopically and endoscopically. A "hydronephrotic rodriguez" was noted upon stent placement. The bladder was emptied and the cystoscope removed. The patient tolerated the procedure well and was taken to the recovery room in stable condition.
--- NOTE | 2024-10-24 13:47 | FL ---
Fluoroscopic guidance operating room. HISTORY: Ureteral stent placement. COMPARISON: None TECHNIQUE: 32.7 seconds of fluoroscopy in 2 spot films were obtained. FINDINGS: Spot films demonstrate placement of the right ureteral stent. The distal aspect of the stent is not i ncluded in the study. The proximal aspect of the stent appears to be situated within the right renal collecting system which is mildly hydronephrotic. IMPRESSION: Right ureteral stent placement with fluoroscopic guidance. [facility], , 10/24/2024 1:45 PM
--- NOTE | 2024-10-24 14:14 | P.HPIM ---
History of Present Illness H&P Date: 10/24/24 History of present illness: 68-year-old male patient with past medical history significant for prostate cancer, diabetes mellitus who presented to ER with a complaint of right flank pain. Patient reported that he started to have pain for 3 to 4 hours, was radiating from right flank into his right groin. Patient denied any fever, chills, dysuria urgency or frequency. Vital stable, afebrile, heart rate in the 50s, respiratory rate 16, blood pressure 108/63, saturating 97% on room air. WBCs 19.5, hemoglobin 17.0, platelet 251. BMP remarkable for creatinine 1.77, BUN 26. UA positive for large RBCs, 18 WBCs, occasional bacteria. CT abdomen pelvis showed 0.4 cm obstructing calculus in the right distal ureter with right hydronephrosis and right hydroureter, nonobstructing left renal calculus, fatty liver, diverticulosis. Assessment and plan: Right ureteral stone: Leukocytosis Right hydroureteronephrosis: DUSTIN: Pain control Antibiotic Rocephin Urology consulted IV fluids Monitor renal function Urine culture, blood culture. DVT prophylaxis SCD Monitor vital signs and labs Labs and medication were reviewed. Continue same treatment. Further recommendations as per clinical course of the patient PHYSICAL EXAMINATION: GENERAL: The patient is A&O x3, NAD HEENT: EOMI, Sclerae anicteric, Moist Mucous membranes Neck: Supple, Non tender, No JVD PULMONARY: Equal breath souds B/L, No wheezing, No crackles. CARDIOVASCULAR: S1, S2 present. No murmurs, rubs, or gallops. ABDOMEN: Soft, nontender, nondistended, normoactive bowel sounds. No guarding or rebound tenderness. MUSCULOSKELETAL: No edema, No cyanosis. No clubbing. Normal ROM. Intact peripheral pulses. NEUROLOGICAL: CN 2-12 grossly intact. No FND REVIEW OF SYSTEMS: CONSTITUTIONAL: No fever, no malaise, no fatigue. HEENT: No recent visual problems or hearing problems. Denied any sore throat. CARDIOVASCULAR: No chest pain, orthopnea, PND, no palpitations, no syncope. PULMONARY: No shortness of breath, no cough, no hemoptysis. GASTROINTESTINAL: No diarrhea, no nausea, no vomiting, no abdominal pain. NEUROLOGICAL: No headaches, no weakness, no numbness. HEMATOLOGICAL: Denies any bleeding or petechiae. GENITOURINARY: Denies any burning micturition, frequency, or urgency. MUSCULOSKELETAL/RHEUMATOLOGICAL: Denies any joint pain, swelling, or any muscle pain. ENDOCRINE: Denies any polyuria or polydipsia. The rest of the 14-point review of systems is negative. Dictation was produced using [employer] dictation software. please excuse any grammatical, word or spelling errors. Past Medical History Past Medical History: Cancer, Chest Pain / Angina, Diabetes Mellitus, Myocardial Infarction ([place]) Additional Past Medical History / Comment(s): prostate cancer, arthritis Last Myocardial Infarction Date:: 2016 History of Any Multi-Drug Resistant Organisms: None Reported Past Surgical History: Heart Catheterization With Stent, Tonsillectomy Additional Past Surgical History / Comment(s): knee surgery x3, bicep surgery, Past Anesthesia/Blood Transfusion Reactions: No Reported Reaction Date of Last Stent Placement:: 2006 Past Psychological History: No Psychological Hx Reported Smoking Status: Current every day smoker Past Alcohol Use History: None Reported Past Drug Use History: None Reported - Past Family History Father Family Medical History: Cancer Mother Family Medical History: Cancer Medications and Allergies Home Medications Medication Instructions Recorded Confirmed Type Aspirin [Adult Low Dose Aspirin EC] 162 mg PO DAILY 07/24/17 06/20/22 History Cholecalciferol [Vitamin D3 (25 5,000 unit PO DAILY 07/24/17 06/20/22 History Mcg = 1000 Iu)] Gabapentin [Neurontin] 300 mg PO HS 07/24/17 06/20/22 History Irbesartan [Avapro] 150 mg PO HS 07/24/17 06/20/22 History Nitroglycerin Sl Tabs [Nitrostat] 0.4 mg SUBLINGUAL Q5M PRN #25 tab 09/21/17 06/18/22 Rx Isosorbide Mononitrate [Isosorbide 30 mg PO DAILY 06/18/22 06/20/22 History Mononitrate ER] Spironolactone 25 mg PO DAILY 06/18/22 06/20/22 History Tamsulosin [Flomax] 0.4 mg PO DAILY 06/18/22 06/20/22 History carvediloL [Coreg] 3.125 mg PO BID 06/18/22 06/20/22 History Atorvastatin [Lipitor] 80 mg PO HS 06/20/22 06/20/22 History Etanercept [Enbrel] 50 mg SQ WEEKLY 06/20/22 06/20/22 History oxyCODONE-APAP 5-325MG [Percocet 1 tab PO Q4HR PRN 06/20/22 06/20/22 History 5-325 mg] Sulfamethox-Tmp 800-160Mg [Bactrim 1 tab PO Q12HR #10 tab 10/24/24 Rx DS 800-160 mg] Allergies Allergy/AdvReac Type Severity Reaction Status Date / Time amoxicillin Allergy Unknown Nausea & Verified 10/23/24 21:01 Vomiting & Diarrhea ibuprofen [From Motrin] AdvReac Unknown STATES Verified 10/23/24 21:01 DOES NOT TAKE DUE TO KIDNEYS. Physical Exam Vitals: Vital Signs Temp Pulse Pulse Resp BP BP Pulse Ox 10/24/24 14:04 49 L 16 108/63 97 10/24/24 13:49 52 L 16 110/59 98 10/24/24 13:34 97.4 F L 59 L 16 108/56 95 10/24/24 07:00 97.7 F 62 16 128/70 97 10/24/24 03:00 97.4 F L 83 18 124/79 95 10/24/24 02:01 54 L 18 184/74 99 10/23/24 20:58 97.4 F L 78 20 153/76 95 Intake and Output 10/23/24 10/24/24 10/24/24 22:59 06:59 14:59 Intake Total 400 Output Total 0 Balance 400 Intake: IV 400 Output: Estimated Blood Loss 0 Other: # Voids 1 # Bowel Movements 1 Weight 102.058 kg 102.058 kg 102.058 kg Results CBC & Chem 7: 10/23/24 21:32 10/23/24 21:32 Labs: Abnormal Lab Results - Last 24 Hours (Table) 10/23/24 10/23/24 10/23/24 Range/Units 21:32 21:32 21:32 WBC 19.5 H (3.8-10.6) k/uL Neutrophils # 16.6 H (1.3-7.7) k/uL Monocytes # 1.1 H (0-1.0) k/uL Carbon Dioxide 17 L (22-30) mmol/L BUN 26 H (9-20) mg/dL Creatinine 1.77 H (0.66-1.25) mg/dL Glucose 131 H (74-99) mg/dL Calcium 10.6 H (8.4-10.2) mg/dL Urine Protein 1+ H (Negative) Urine Ketones Trace H (Negative) Urine Blood Large H (Negative) Urine RBC >182 H (0-5) /hpf Urine WBC 18 H (0-5) /hpf Urine WBC Clumps Many H (None) /hpf Urine Bacteria Occasional H (None) /hpf Hyaline Casts 14 H (0-2) /lpf Urine Mucus Many H (None) /hpf Thrombosis Risk Factor Assmnt - Choose All That Apply Each Risk Factor Represents 2 Points: Age 61-74 years Thrombosis Risk Factor Assessment Total Risk Factor Score: 2 Thrombosis Risk Factor Assessment Level: Low Risk
[2024-10-24] MEDS ORDERED: NITROGLYCERIN SL TABS 0.4 MG TAB SUBLINGUAL PRN (18:45)
[2024-10-24] MEDS: ATORVASTATIN 80 MG TAB PO SCH (20:16)
[2024-10-24] MEDS: FAMOTIDINE 20 MG TAB PO SCH (20:16)
[2024-10-24] MEDS: TAMSULOSIN 0.4 MG CAP.ER.24H PO SCH (20:16)
[2024-10-24] MEDS: carvediloL 3.125 MG TAB PO SCH (20:16)
[2024-10-24] MEDS: LOSARTAN 50 MG TAB PO SCH (20:16)
[2024-10-24] MEDS: GABAPENTIN 300 MG CAP PO SCH (20:16)
[2024-10-24] MEDS: MORPHINE SULFATE ER 15 MG TABLET PO SCH (20:17)
[2024-10-25 07:25] VITALS: BP 112/72; PULSE 51; RESP 15; TEMP 98
[2024-10-25] MEDS: CLOPIDOGREL 75 MG TAB PO SCH (08:25)
[2024-10-25] MEDS: SPIRONOLACTONE 25 MG TAB PO SCH (08:25)
[2024-10-25] MEDS: PYRIDOXINE 50 MG TAB PO SCH (08:25)
[2024-10-25] MEDS: ASPIRIN 81 MG PO SCH (08:25)
[2024-10-25] MEDS: CHOLECALCIFEROL 25 MCG (1000 IU) TABLET PO SCH (08:25)
[2024-10-25] MEDS: DAPAGLIFLOZIN PROPANEDIOL 5 MG TABLET PO SCH (08:25)
[2024-10-25 09:39] LABS: Basophils # (A) 0.08 X 10*3/uL (0.00-0.10); Basophils % (A) 1.1 %; Eosinophils # (A) 0.31 X 10*3/uL (0.04-0.35); Eosinophils % (A) 4.3 %; HCT 38.7 % (39.6-50.0); HGB 12.8 g/dL (13.0-17.0); Lymphocytes # (A) 1.31 X 10*3/uL (0.90-5.00); Lymphocytes % (A) 18.3 %; MCH 28.9 pg (27.0-32.0); MCHC 33.1 g/dL (32.0-37.0); MCV 87.4 FL (80.0-97.0); Monocytes % (A) 12.6 %; NRBC Per 100 WBC 0 X 10*3/uL (0.00-0.01); Neutrophils # (A) 4.51 X 10*3/uL (1.80-7.70); Neutrophils % (A) 63.1 %; Platelet Count 182 X 10*3/uL (140-440); RBC 4.43 X 10*6/uL (4.40-5.60); RDW 13.6 % (11.5-14.5); WBC 7.15 X 10*3/uL (4.50-10.00)
[2024-10-25 09:51] LABS: BUN/Creat Ratio 14.43 Ratio (12.00-20.00); Blood Urea Nitrogen 20.2 mg/dL (9.0-27.0); Calcium 8.1 mg/dL (8.7-10.3); Carbon Dioxide 18.1 mmol/L (21.6-31.8); Chloride 116 mmol/L (96-109); Glucose 97 mg/dL (70-110); Potassium 4.2 mmol/L (3.5-5.5); Sodium 143 mmol/L (135-145)
--- NOTE | 2024-10-25 12:47 | P.PN ---
Subjective Progress Note Date: 10/25/24 Principal diagnosis: Right hydronephrosis secondary to right ureteral calculus Mr. Francois was admitted with right renal colic and was found to have high-grade right ureteral obstruction due to a 4 to 5 mm calculus at the level of the iliac vessels. He also has a nonobstructing left renal calculus. He underwent cystoscopy with right ureteral stent insertion on October 24, 2024 and feels markedly better today. Objective - Vital Signs Vital signs: Vital Signs Temp 98.0 F 10/25/24 07:00 Pulse 51 L 10/25/24 07:00 Resp 15 10/25/24 07:00 BP 112/72 10/25/24 07:00 Pulse Ox 94 L 10/25/24 07:00 FiO2 Intake & Output 10/24/24 10/25/24 10/25/24 18:59 06:59 18:59 Intake Total 500 Output Total 0 Balance 500 Weight 102.058 kg Intake: IV 500 Output: Estimated Blood Loss 0 Other: # Voids 1 2 # Bowel Movements 1 - Constitutional General appearance: Present: average body habitus, cooperative, no acute distress - Psychiatric Psychiatric: Present: A&O x's 3 - Labs CBC & Chem 7: 10/25/24 05:39 10/25/24 05:39 Labs: Abnormal Lab Results - Last 24 Hours (Table) 10/25/24 10/25/24 Range/Units 05:39 05:39 Hgb 12.8 L (13.0-17.0) g/dL Hct 38.7 L (39.6-50.0) % Chloride 116 H (96-109) mmol/L Carbon Dioxide 18.1 L (21.6-31.8) mmol/L Est GFR (CKD-EPI) 55 L (>=60) Calcium 8.1 L (8.7-10.3) mg/dL Assessment and Plan (1) Calculus of kidney Current Visit: Yes Status: Acute Code(s): N20.0 - CALCULUS OF KIDNEY SNOM ED Code(s): 15680303 (2) Calculus of ureter Current Visit: Yes Status: Acute Code(s): N20.1 - CALCULUS OF URETER SNOMED Code(s): 13042721 (3) Hydronephrosis with renal and ureteral calculous obstruction Current Visit: Yes Status: Acute Code(s): N13.2 - HYDRONEPHROSIS WITH RENAL AND URETERAL CALCULOUS OBSTRUCTION SNOMED Code(s): 031856240 Plan: Mr. Francois feels much better now that he has undergone stent placement. He is afebrile. From a urologic standpoint, he may be discharged home. I have empirically prescribed Bactrim DS, and my office will contact him to schedule follow-up surgery. This will consist of right ureteral stent removal, bilateral ureteroscopy with laser lithotripsy, and left stent insertion. Please notify me if I can be of any further assistance.
--- NOTE | 2024-10-25 13:47 | P.DS ---
Providers Date of admission: 10/24/24 02:03 Expected date of discharge: 10/25/24 Attending physician: Rosy Perez Consults: 10/24/24 01:59 Consult Physician Urgent Consulting Provider: Elian Davis Consult Reason/Comments: acute uti, right ureteral stone with hydronephrosis, dustin Do you want consulting provider notified?: Already Contacted Primary care physician: Tito Urrutia Hospital Course: Discharge diagnoses: Right ureteral stone: UTI: Leukocytosis Right hydroureteronephrosis: DUSTIN: Required IV pain medication for pain control Received Rocephin during hospitalization, continued Bactrim for 5 days at discharge. Urology consulted patient underwent cystoscopy with right ureteral stent insertion on October 24, 2024--, symptoms later improved. Leukocytosis improved. Urology recommended outpatient follow-up for right ureteral stent removal, bilateral ureteroscopy with laser lithotripsy and left stent insertion. Hospital course: 68-year-old male patient with past medical history significant for prostate cancer, diabetes mellitus who presented to ER with a complaint of right flank pain. Patient reported that he started to have pain for 3 to 4 hours, was radia ting from right flank into his right groin. Patient denied any fever, chills, dysuria urgency or frequency. Vital stable, afebrile, heart rate in the 50s, respiratory rate 16, blood pressure 108/63, saturating 97% on room air. WBCs 19.5, hemoglobin 17.0, platelet 251. BMP remarkable for creatinine 1.77, BUN 26. UA positive for large RBCs, 18 WBCs, occasional bacteria. CT abdomen pelvis showed 0.4 cm obstructing calculus in the right distal ureter with right hydronephrosis and right hydroureter, nonobstructing left renal calculus, fatty liver, diverticulosis. Patient was admitted to hospital for further evaluation and management. Urology consulted. Patient received Rocephin during hospitalization, continued on Bactrim for 5 days at discharge per urology recommendation. Patient underwent cystoscopy with right ureteral stent insertion on October 24, 2024--, symptoms later improved. Leukocytosis improved. Urology recommended outpatient follow-up for right ureteral stent removal, bilateral ureteroscopy with laser lithotripsy and left stent insertion. Patient symptoms improved. Please refer to medical assessment for further details. Follow-up with PCP in 1 week Follow-up with urology as outpatient. PHYSICAL EXAMINATION: GENERAL: The patient is A&O x3, NAD HEENT: EOMI, Sclerae anicteric, Moist Mucous membranes Neck: Supple, Non tender, No JVD PULMONARY: Equal breath souds B/L, No wheezing, No crackles. CARDIOVASCULAR: S1, S2 present. No murmurs, rubs, or gallops. ABDOMEN: Soft, nontender, nondistended, normoactive bowel sounds. No guarding or rebound tenderness. MUSCULOSKELETAL: No edema, No cyanosis. No clubbing. Normal ROM. Intact peripheral pulses. NEUROLOGICAL: CN 2-12 grossly intact. No FND SKIN: No rashes. Dictation was produced using [employer] dictation software. please excuse any grammatical, word or spelling errors. Patient Condition at Discharge: Fair Plan - Discharge Summary New Discharge Prescriptions: New Sulfamethox-Tmp 800-160Mg [Bactrim DS 800-160 mg] 1 tab PO Q12HR #10 tab methocarbamoL [Robaxin] 500 mg PO QID #20 tab Acetaminophen Tab [Tylenol] 650 mg PO Q6HR PRN tab PRN Reason: Mild Pain Or Fever > 100.5 traMADol HCl [Ultram] 50 mg PO Q6HR PRN 3 Days #12 tab PRN Reason: Pain Continue Irbesartan [Avapro] 150 mg PO HS Cholecalciferol [Vitamin D3 (25 Mcg = 1000 Iu)] 25 mcg PO DAILY Gabapentin [Neurontin] 300 mg PO HS Aspirin [Adult Low Dose Aspirin EC] 81 mg PO DAILY Tamsulosin [Flomax] 0.4 mg PO DAILY Spironolactone 12.5 mg PO DAILY Etanercept [Enbrel] 50 mg SQ DIRECTED Clopidogrel [Plavix] 75 mg PO DAILY Empagliflozin [Jardiance] 10 mg PO DAILY Famotidine 20 mg PO BID carvediloL [Coreg] 3.125 mg PO BID Atorvastatin [Lipitor] 80 mg PO HS Morphine Sulfate ER [Ms Contin] 15 mg PO Q12HR Pyridoxine HCl (Vitamin B6) [Vitamin B-6] 100 mg PO DAILY Nitroglycerin Sl Tabs [Nitrostat] 0.4 mg SL Q5M PRN PRN Reason: Chest Pain Discharge Medication List Aspirin [Adult Low Dose Aspirin EC] 81 mg PO DAILY 07/24/17 [History] Cholecalciferol [Vitamin D3 (25 Mcg = 1000 Iu)] 25 mcg PO DAILY 07/24/17 [History] Gabapentin [Neurontin] 300 mg PO HS 07/24/17 [History] Irbesartan [Avapro] 150 mg PO HS 07/24/17 [History] Spironolactone 12.5 mg PO DAILY 06/18/22 [History] Tamsulosin [Flomax] 0.4 mg PO DAILY 06/18/22 [History] carvediloL [Coreg] 3.125 mg PO BID 06/18/22 [History] Atorvastatin [Lipitor] 80 mg PO HS 06/20/22 [History] Etanercept [Enbrel] 50 mg SQ DIRECTED 06/20/22 [History] Clopidogrel [Plavix] 75 mg PO DAILY 10/24/24 [History] Empagliflozin [Jardiance] 10 mg PO DAILY 10/24/24 [History] Famotidine 20 mg PO BID 10/24/24 [History] Morphine Sulfate ER [Ms Contin] 15 mg PO Q12HR 10/24/24 [History] Nitroglycerin Sl Tabs [Nitrostat] 0.4 mg SL Q5M PRN 10/24/24 [History] Pyridoxine HCl (Vitamin B6) [Vitamin B-6] 100 mg PO DAILY 10/24/24 [History] Sulfamethox-Tmp 800-160Mg [Bactrim DS 800-160 mg] 1 tab PO Q12HR #10 tab 10/24/24 [Rx] Acetaminophen Tab [Tylenol] 650 mg PO Q6HR PRN tab 10/25/24 [Rx] methocarbamoL [Robaxin] 500 mg PO QID #20 tab 10/25/24 [Rx] traMADol HCl [Ultram] 50 mg PO Q6HR PRN 3 Days #12 tab 10/25/24 [Rx] Follow up Appointment(s)/Referral(s): Tiot Urrutia DO [Primary Care Provider] - 1-2 days Patient Instructions/Handouts: Ureteral Stent Placement (DC) Discharge Disposition: HOME SELF-CARE
[2024-10-26] MEDS ORDERED: NON FORMULARY DRUG (Etanercept [Enbrel] 50 MG/ML Syringe) SQ SCH (09:00)
== END 2024-10-25 14:00 | disposition home or self-care (01) ==
LOC: EC 20:57 → 6NMEDSUR 10-24 02:03
PROVIDERS: ADMIT Hospitalist; ATTEND Hospitalist
DX: N13.2 Hydronephrosis with renal and ureteral calculous obstruction (principal); N39.0 Urinary tract infection, site not specified; N17.9 Acute kidney failure, unspecified; E11.9 Type 2 diabetes mellitus without complications; I25.2 Old myocardial infarction; F17.200 Nicotine dependence, unspecified, uncomplicated; Z85.46 Personal history of malignant neoplasm of prostate; Z92.3 Personal history of irradiation; Z95.5 Presence of coronary angioplasty implant and graft; Z79.82 Long term (current) use of aspirin; Z79.899 Other long term (current) drug therapy; Z88.0 Allergy status to penicillin; Z88.6 Allergy status to analgesic agent
CPT/HCPCS: 96376 ×3; 96365; 96366; 96361; 96375 ×2; 99285; 36415; 93005; 80053; 80048; 83605; 83690; 85025 ×2; 81001; 87040; 87086; 74177; 52332; G0378 ×2; C2625; C1769; J2250; J0696 ×3; J3010; J1171 ×2; J1885; J2704; Q9967

== ENCOUNTER → 2024-12-15 | Outpatient (CLI) | payer MEDICARE ==
--- NOTE | 2024-12-15 09:50 | US ---
EXAMINATION TYPE: US kidneys/renal and bladder DATE OF EXAM: 12/15/2024 COMPARISON: CT CLINICAL INDICATION: Male, 69 years old with history of N20.0 CALCULUS OF KIDNEY; Calculus left TECHNIQUE: Grayscale imaging of the bilateral kidneys and urinary bladder: FINDINGS: EXAM MEASUREMENTS: Right Kidney: 11.7 x 5.3 x 5.2 cm Left Kidney: 12.7 x 5.6 x 5.1 cm Right Kidney: No hydronephrosis or masses seen Left Kidney: *Some anechoic fluid seen inferior-lateral. Bladder: No abnormalities seen Bilateral Jets seen: No, only left jet was seen. IMPRESSION: Visualization of single jet is nonspecific. Otherwise trace fluid. [facility], , 12/15/2024 9:48 AM
== END | disposition home or self-care (01) ==
LOC: RADUSWWP 09:17
PROVIDERS: ATTEND Urology
DX: N20.0 Calculus of kidney (principal)
CPT/HCPCS: 76770